=== PATIENT | female | born 1965 | race Native Hawaiian/Other Pacific Islander ===

== ENCOUNTER 2017-03-11 23:24 | Observation (INO) | payer BC ==
[~2017-03-11] VITALS: Ht 162.6 cm; Wt 74.9 kg
[2017-03-12 00:23] VITALS: BP 147/79; TEMP 97.9
[2017-03-12 00:57] LABS: PLATELET COUNT 181 K/uL (152-353)
[2017-03-12 01:05] LABS: SODIUM 138 mmol/L (136-145)
[2017-03-12 01:12] LABS: PARTIAL THROMBOPLASTIN TIME 26.5 SECONDS (24.5-33.6)
[2017-03-12 02:51] VITALS: BP 118/59; TEMP 98.1; Ht 162.6 cm; Wt 74.9 kg
--- NOTE | 2017-03-12 03:46 | NUR ---
PATIENT RECEIVED FROM ED VIA WC. ALERT AND ORIENTED X 3. PATIENT GIVEN EDUCATION REGARDING BED CONTROLS AND CALL LIGHT. INSTRUCTED TO KEEP BED IN LOW POSITION. 20G SL TO LAC INTACT AND PATENT. SPOUSE AT BEDSIDE.
[2017-03-12 04:00] VITALS: BP 118/59; TEMP 98.1
[2017-03-12 08:00] VITALS: BP 116/49; TEMP 97.8
[2017-03-12 11:59] VITALS: BP 105/42; TEMP 98.1
[2017-03-12 15:52] VITALS: BP 101/48; TEMP 98.1
--- NOTE | 2017-03-12 20:25 | NUR ---
PATIENT DC VIA WC TO CARE OF SPOUSE. DC INSTRUCTIONS GIVEN. PATIENT VERBALIZED UNDERSTANDING.
== END 2017-03-12 20:15 | disposition home or self-care (01) ==
LOC: ED 23:24 → MED/SURG 03-12 01:47
DX: R07.89 Other chest pain (principal); I51.7 Cardiomegaly; M54.12 Radiculopathy, cervical region
CPT/HCPCS: 36415; 80053; 82550; 82553; 84484; 85027; 85610; 85730; 93005; 99220; 99284; G0378; J1650

== ENCOUNTER 2017-04-18 10:16 | Outpatient (CLI) | payer BC | END 2017-04-18 19:36 | disposition home or self-care (01) | LOC: MRI 10:16 | DX: M54.12 Radiculopathy, cervical region (principal) ==

== ENCOUNTER 2018-06-30 16:40 | Emergency (ER) | payer BC ==
[~2018-06-30] VITALS: Ht 162.6 cm; Wt 74.8 kg
[2018-06-30 16:50] VITALS: TEMP 98.1
[2018-06-30 18:59] VITALS: BP 130/68
== END 2018-06-30 19:00 | disposition home or self-care (01) ==
LOC: ED 16:40
DX: L25.9 Unspecified contact dermatitis, unspecified cause (principal)
CPT/HCPCS: 96372; 99282; J2930; Q0177

== ENCOUNTER 2018-10-11 07:48 | Outpatient (CLI) | payer BC | END 2018-10-11 19:07 | disposition home or self-care (01) | LOC: NM 07:48 | DX: R10.11 Right upper quadrant pain (principal) | CPT/HCPCS: A9537 ==

== ENCOUNTER 2018-11-07 10:54 | Day surgery (SDC) | payer BC ==
[2018-11-07 12:00] LABS: PLATELET COUNT 206 K/uL (152-353)
[2018-11-07 12:15] LABS: POTASSIUM 4.4 mmol/L (3.6-5.2)
== END 2018-11-07 14:32 | disposition home or self-care (01) ==
LOC: OR 10:54
PROVIDERS: Internal Medicine Gastroenterology
PROC: 0DB68ZZ Excision of Stomach, Via Natural or Artificial Opening Endoscopic (ICD-10-PCS; principal; 2018-11-07)
DX: K22.10 Ulcer of esophagus without bleeding (principal); K44.9 Diaphragmatic hernia without obstruction or gangrene; K25.9 Gastric ulcer, unspecified as acute or chronic, without hemorrhage or perforation; K29.00 Acute gastritis without bleeding; R10.13 Epigastric pain; R10.12 Left upper quadrant pain; R11.2 Nausea with vomiting, unspecified; K21.0 Gastro-esophageal reflux disease with esophagitis
CPT/HCPCS: 80053; 85027; J2001; J2250; J2704

== ENCOUNTER 2018-11-21 11:07 | Day surgery (SDC) | payer BC | END 2018-11-21 15:05 | disposition home or self-care (01) | LOC: OR 11:07 | PROC: 0DBM8ZZ Excision of Descending Colon, Via Natural or Artificial Opening Endoscopic (ICD-10-PCS; principal; 2018-11-21) | PROC: 0DBN8ZZ Excision of Sigmoid Colon, Via Natural or Artificial Opening Endoscopic (ICD-10-PCS; 2018-11-21) | DX: K57.30 Diverticulosis of large intestine without perforation or abscess without bleeding (principal); K63.5 Polyp of colon; K64.8 Other hemorrhoids; R19.4 Change in bowel habit; K92.1 Melena; Z80.0 Family history of malignant neoplasm of digestive organs | CPT/HCPCS: 94640; 94664; J2001; J2250; J2405; J2704; J2765 ==

== ENCOUNTER 2019-03-13 11:22 | Day surgery (SDC) | payer BC ==
[2019-03-13 13:16] LABS: PLATELET COUNT 203 K/uL (152-353)
== END 2019-03-13 16:40 | disposition home or self-care (01) ==
LOC: OR 11:22
PROVIDERS: Internal Medicine Gastroenterology
PROC: 0DB68ZZ Excision of Stomach, Via Natural or Artificial Opening Endoscopic (ICD-10-PCS; principal; 2019-03-13)
DX: K29.50 Unspecified chronic gastritis without bleeding (principal); K44.9 Diaphragmatic hernia without obstruction or gangrene; K25.9 Gastric ulcer, unspecified as acute or chronic, without hemorrhage or perforation; R10.13 Epigastric pain; K21.9 Gastro-esophageal reflux disease without esophagitis
CPT/HCPCS: 80053; 85027; J2001; J2250; J2704

== ENCOUNTER 2019-03-25 23:31 | Outpatient (CLI) | payer BC | END 2019-03-25 23:36 | disposition short-term general hospital (02) | LOC: AMB 23:31 | DX: I46.9 Cardiac arrest, cause unspecified (principal) | CPT/HCPCS: A0425; A0433 ==